=== PATIENT | male | born 1995 | race Caucasian/White ===

== ENCOUNTER 2024-11-30 11:20 | Emergency (ER) | payer BC, SELFPAY ==
[2024-11-30 11:22] VITALS: BP 165/99; PULSE 57; RESP 16; TEMP 36.8; O2SAT 100; BMI 35.3
--- NOTE | 2024-11-30 11:25 | RAD_ITS ---
PROCEDURE: HAND MIN 3 VIEWS REASON FOR EXAM: Crushing injury TECHNIQUE: Three-view left hand COMPARISON: None. RAD/Hand Min 3 Views IMPRESSION: Radiopaque foreign bodies are seen at the level of the proximal portions of the 3rd and 4th proximal phalanges. No arthritic process or joint narrowing is seen. No fracture or dislocation is evident. If clinical concern persists, short-ter m follow-up imaging may be obtained to rule out a currently occult fracture. Reading Location: [id number]
[2024-11-30 15:20] VITALS: PULSE 67; RESP 17; O2SAT 97
--- NOTE | 2024-11-30 15:35 | EX.ED.UPPERE ---
HPI History of Present Illness HPI Narrative: Patient presents with crush injury to his left hand that occurred today. Patient states that his hand got crushed in a lift gate. Patient admits to some tingling into his fingers. Patient denies any weakness. Patient describes the pain as aching. Patient is left-hand dominant. Patient is unsure of his last tetanus. Patient states his pain is worse with movement of his fingers. Patient states nothing makes it better. Chief Complaint: Upper Extremity Injury Informant: patient Occured/Mechanism Mechanism/Context: Yes crush Onset/Context/Timing Onset: Today Context: Sudden Onset Timing: Continuous Quality of Pain: Aching Location: Left hand Worsened by: Movement Relieved by: Nothing Associated Symptoms Associated Symptoms: Positive for Parasthesia; Negative for Weakness Narrative Tetanus Immunization: Unknown PFSH PFS Medical History no medical history no medical history Home Medications ?Medication ?Instructions ?Recorded ?Last Taken ?Type NK 11/30/24 Unknown History sulfamethoxazole 800 1 tab PO BID #14 TABLETS 11/30/24 Unknown Rx mg-trimethoprim 160 mg tablet Allergy/AdvReac Type Severity Reaction Status Date / Time cheese Allergy Severe Anaphylaxis Verified 11/30/24 11:22 Penicillins (PCN) Allergy Severe Anaphylaxis Verified 11/30/24 11:22 Surgical History (Updated 11/30/24 @ 15:[address] Perez Corona, DO) Hx of tonsillectomy ROS ROS ED Constitutional Constitutional ED: Denies chills or fever(s) Eyes Eyes: Denies blurry vision or change in vision ENT ENT ED: Denies rhinorrhea or sore throat Cardiovascular Cardiovascular: Denies chest pain or palpitations Respiratory/Chest Respiratory/Chest: Denies cough or dyspnea Gastrointestinal Gastrointestinal: Denies nausea or vomiting Genitourinary Genitourinary ED: Denies dysuria or hematuria Musculoskeletal Musculoskeletal: Denies back pain or neck pain Integumentary Denies abscess or rash Neurologic Neurologic: Denies headache(s) or weakness Allergic/Immunologic Allergic/Immunologic ED: Denies mouth swelling or urticaria EXAM Physical Exam Const Vital Signs: 11/30/24 11:22 Temperature 98.2 F Temperature Source Oral Pulse Rate 57 L Respiratory Rate 16 Blood Pressure 165/99 H Blood Pressure Mean 121 Pulse Ox 100 Oxygen Delivery Method Room Air Positive well nourished and well developed General Appearance ED: well developed and NAD HEENT Reports moist mucous membranes normocephalic Neck full ROM and supple Extremity Extremity Narrative: There is tenderness and superficial abrasions over the palmar and dorsal aspects of the left hand over the MP joints. There is also superficial abrasion over the first metacarpal area. There is no active bleeding noted. Sensation was slightly decreased to light touch in all digits. Capillary refill was less than 2 seconds in all digits. Strength is 5/5 in flexion extension of all digits. Neuro oriented x3, CN's II-XII intact bilaterally, moves all extremities and no focal motor deficits Sensorium / Orientation: alert Motor Exam: strength 5/5 throughout Psych mental status grossly normal MDM MDM MDM Narrative Medical decision making narrative: Differential diagnosis includes contusion, fracture, dislocation. X-rays of the left hand will be obtained to assess for fracture and dislocation. Radiography Diagnostic Testing: Clinical Impression(s) from Imaging Studies Hand X-Ray 11/30/24 11:25 IMPRESSION: Radiopaque foreign bodies are seen at the level of the proximal portions of the 3rd and 4th proximal phalanges. No arthritic process or joint narrowing is seen. No fracture or dislocation is evident. If clinical concern persists, short-term follow-up imaging may be obtained to rule out a currently occult fracture. Reading Location: [address] X-rays of the left hand were obtained. There are 3 views. On my independent interpretation, there are small radiopaque foreign bodies at the bases of the third and fourth proximal phalanges. There is no acute fracture or dislocation noted. Radiologist also interpreted the x-rays and agrees. Treatment and Re-Evaluation Narrative: Patient was given a tetanus booster. Bacitracin dressing was applied. Patient was given a dose of Bactrim here. Patient was given a prescription for Bactrim. Patient was instructed to keep the wounds clean and dry. Patient was instructed to follow-up with his primary care physician in 5 to 7 days. Patient understood and was agreeable with the plan. All questions were answered. Discharge Plan Triage Chief Complaint: Upper Extremity Injury ED Provider: Perez Corona Dx/Rx/DC Orders Clinical Impression: Crushing injury of left hand, Abrasion of left hand Instructions: ED Abrasion, ED Crush Injury, Hand Prescriptions: New sulfamethoxazole-trimethoprim 800-160 mg tablet 1 tab PO BID Qty: 14 0RF No Action NK Primary Care Provider: Care Physician,No Primary Referrals: Porter Tineo MD [Med Staff - Computer Training Specialist] - 5-7 Days Care Physician,No Primary [Primary Care Provider] - Print Language: Palestinian Disposition Disposition: Home, Self Care
[2024-11-30] MEDS: Smz/Tmp Ds Tablet 1 TABLET PO (16:25)
[2024-11-30 16:26] VITALS: BP 124/78; PULSE 64; RESP 18; TEMP 37.1; O2SAT 99
== END 2024-11-30 16:29 | disposition home or self-care (01) ==
PROVIDERS: Emergency Provider Emergency Medicine; Visit Provider Emergency Medicine
DX: S67.22XA Crushing injury of left hand, initial encounter (principal); S60.512A Abrasion of left hand, initial encounter; W23.2XXA Caught, crushed, jammed or pinched between a moving and stationary object, initial encounter; Z23 Encounter for immunization
CPT/HCPCS: 73130; 99282